=== PATIENT | female | born 1970 | race Caucasian/White ===

== ENCOUNTER 2017-07-12 08:47 | Emergency (ER) | payer BC ==
[~2017-07-12] VITALS: Ht 185.4 cm; Wt 98.0 kg
--- NOTE | 2017-07-12 08:48 | NUR ---
Recieved patient to ED bed 04, A/Ox4, pt was brought by [id number] from home for dizziness since yesterday, worse this AM. H/o vertigo. Pt took meclizine w/o relief. Pt gowned and placed on cont monitoring. NAD. VSS rr even and unlabored. Denies CP or SOB. Will cont to monitor
--- NOTE | 2017-07-12 08:58 | NUR ---
Dr. Reese at bedside for evaluation.
[2017-07-12] MEDS ORDERED: ONDANSETRON HCL/PF 4 MG/2 ML VIAL ONE (09:04)
[2017-07-12] MEDS: IV NS 0.9% 1,000 ML BAG IV ONE (09:15)
[2017-07-12] MEDS: ONDANSETRON HCL/PF 4 MG/2 ML VIAL IVP ONE (09:16)
[2017-07-12 09:21] LABS: BASOPHILS % (AUTO) 0.2 % (0.0-2.0); EOSINOPHILS # (AUTO) 0.1 /CMM (0.0-0.7); EOSINOPHILS % (AUTO) 1.1 % (0.0-6.0); HEMATOCRIT 38 % (33-45); HEMOGLOBIN 13.1 g/dL (11.5-14.8); LYMPHOCYTES # (AUTO) 0.8 /CMM (0.8-4.8); LYMPHOCYTES % (AUTO) 8.2 % (20.0-44.0); MEAN CORPUSCULAR HEMOGLOBIN 30 PG (26.0-33.0); MEAN CORPUSCULAR HGB CONC 34 g/dl (31.0-36.0); MEAN CORPUSCULAR VOLUME 86 fL (82-100); MONOCYTES # (AUTO) 0.7 /CMM (0.1-1.30); NEUTROPHILS # (AUTO) 8.6 /CMM (1.8-8.9); NEUTROPHILS % (AUTO) 83.5 % (43.0-81.0); PLATELET COUNT (AUTO) 235 /CMM (150-450); RDW COEFFICIENT OF VARIATION 13.2 (11.5-15.0); RED BLOOD CELL COUNT(AUTO) 4.43 MIL/uL (4.0-5.2); WHITE BLOOD COUNT (AUTO) 10.3 K/uL (4.3-11.0)
[2017-07-12] MEDS ORDERED: MECLIZINE HCL 25 MG TABLET ONE (09:22)
[2017-07-12] MEDS: MECLIZINE HCL 12.5 MG TABLET PO ONE (09:23)
[2017-07-12 09:34] LABS: CALCIUM, SERUM 8.6 mg/dL (8.5-10.1); CARBON DIOXIDE 22 mmol/L (21-32); CHLORIDE 105 mmol/L (98-107); CREATININE 0.9 mg/dL (0.6-1.3); GLUCOSE 116 mg/dL (74-106); POTASSIUM 3.3 mmol/L (3.5-5.1); SODIUM SERUM 138 mmol/L (136-145); UREA NITROGEN, BLOOD 9 mg/dL (7-18)
[2017-07-12 09:44] LABS: TROPONIN I < 0.017 ng/mL (0.00-0.056)
--- NOTE | 2017-07-12 10:13 | NUR ---
IV removed. Catheter intact and site benign. Pressure and 4x4 applied to site. No bleeding noted.Patient discharged to home in stable condition. Written and verbal after care instructions given. Patient verbalizes understanding of instruction.
[2017-07-12 10:14] VITALS: BP 121/80
== END 2017-07-12 10:14 | disposition home or self-care (01) ==
LOC: ER 08:48
DX: R42 Dizziness and giddiness (principal); G35 Multiple sclerosis
CPT/HCPCS: 36415; 80048-TC; 84484-TC; 85025-TC; A4606; J2405; J7030; J8597; Z7610